=== PATIENT | female | born 1935 | race Caucasian/White ===

== ENCOUNTER 2016-06-29 19:30 | Emergency (ER) | payer MEDICARE, OTHER ==
[~2016-06-29] VITALS: Ht 160 cm; Wt 75.0 kg
[~2016-06-29 19:30] MED LIST: ACET325T PO; ATOR1TAB18 PO; CARV3.12 PO; CEPH-460 PO; CILO100T PO; DIVA250ER PO; DOCU100C PO; DORZ2SOL7 EACH EYE; FLOR250C PO; FLUO1TAB3 PO; FURO40TA PO; IPRASOL INH; K-TA10TA PO; KETO2CRE TOPICAL; LEVO.075 PO; LORA-373 PO; LORA1TAB12 PO; MELA3TAB PO; MIRA33504 PO; NYST15T TOPICAL; PANT40TA3 PO; SALM50I INH; SELE1SHA3 TOPICAL; SENN1TAB PO; TRAM50TA PO; TUMS500C CHEW; VENTAER INH; VITA100018 PO
[2016-06-29 19:45] VITALS: PULSE 96; RESP 20; TEMP 98; O2SAT 89
[2016-06-29 19:50] VITALS: RESP 18; O2SAT 94
[2016-06-29] MEDS ORDERED: SODIUM CHLORIDE 0.9% FLUSH 10 ML FLUSH IVF PRN (20:00)
[2016-06-29 20:08] LABS: AUTOMATED NEUTROPHIL # 4.4 TH/MM3 (1.8-7.7); BASOPHIL # 0.1 TH/MM3 (0-0.2); BASOPHIL % 0.9 % (0.0-2.0); EOSINOPHIL # 0.2 TH/MM3 (0-0.4); EOSINOPHIL % 3.1 % (0.0-4.0); HEMATOCRIT 34.8 % (35.0-46.0); HEMO FLAGS DIFF FINAL; LYMPH % 18.8 % (9.0-44.0); LYMPHOCYTE # 1.3 TH/MM3 (1.0-4.8); MEAN CELL VOLUME 89.6 FL (80.0-100.0); MEAN CORPUSCULAR HEMOGLOBIN 31.9 PG (27.0-34.0); MEAN CORPUSCULAR HGB CONC 35.6 % (32.0-36.0); MONO % 12.4 % (0.0-8.0); NEUT % 64.8 % (16.0-70.0); PLATELET COUNT 278 TH/MM3 (150-450); RED BLOOD COUNT 3.89 MIL/MM3 (4.00-5.30); RED CELL DISTRIBUTION WIDTH 13.9 % (11.6-17.2); WHITE BLOOD COUNT 6.8 TH/MM3 (4.0-11.0)
--- NOTE | 2016-06-29 20:15 | PD ---
HPI Chief Complaint: Respiratory Symptoms Time Seen by Provider: 20:12 Travel History International Travel<30 days: No Contact w/Intl Traveler<30days: No Traveled to known affect area: No History of Present Illness HPI 80-year-old female that presents to the ED for evaluation of possible pneumonia. Patient was sent here from long-term after apparently she had an x-ray that showed pneumonia. She was sent here for evaluation of this. Unclear if something has been done for the pneumonia. Patient does have some Alzheimer's what she is able to answer questions a properly. Per patient she's been sick for a couple of weeks. She does have a history of COPD and uses inhalers and prednisone at home. She states that she's been feeling somewhat short of breath and she has a cough or runny nose. No fevers chills or sweats. Patient had a chest x-ray performed at a different facility which was positive for right-sided possible pneumonia versus effusion. Patient denies any abdominal pain. No nausea or vomiting. No pain of any kind. Per patient she does have some shortness of breath. No leg pain. No arm pain. She does have a history of anemia for which she takes iron but no blood thinners. Allergies to corticosteroids. Symptoms have been ongoing for a couple of weeks. PFSH Past Medical History Hx Anticoagulant Therapy: Yes (asa 81mg prn) Arthritis: Yes Asthma: No Autoimmune Disease: No Bipolar Disorder: Yes Heart Rhythm Problems: Yes Cancer: Yes (Skin ) Cardiovascular Problems: No High Cholesterol: Yes Chemotherapy: No Chest Pain: No Congestive Heart Failure: No COPD: Yes Cerebrovascular Accident: No Diabetes: Yes Patient Takes Glucophage: Yes Diminished Hearing: No Endocrine: Yes Gastrointestinal Disorders: No GERD: No Genitourinary: No Hiatal Hernia: No Immune Disorder: No Kidney Stones: No Musculoskeletal: Yes Neurologic: No Psychiatric: No Reproductive: No Respiratory: Yes Migraines: No Radiation Therapy: No Renal Failure: No Seizures: Yes Sickle Cell Disease: No Sleep Apnea: No Thyroid Disease: Yes Ulcer: No Tetanus Vaccination: Unknown Influenza Vaccination: Yes Menopausal: Yes Past Surgical History Abdominal Surgery: Yes (umbilical hernia repair) AICD: No Arteriovenous Shunt: No Cardiac Surgery: No Ear Surgery: No Endocrine Surgery: Yes (Thyroid) Eye Surgery: Yes (cataracts) Genitourinary Surgery: No Gynecologic Surgery: No Insulin Pump: No Joint Replacement: No Oral Surgery: No Pacemaker: No Thoracic Surgery: No Tonsillectomy: Yes Other Surgery: Yes Social History Alcohol Use: Yes (FEW DRINKS A WEEK) Tobacco Use: No Substance Use: No Allergies-Medications (Allergen,Severity, Reaction): Coded Allergies: Corticosteroids (Verified Allergy, Unknown, Irritability/Anxiety, 06/29/16) Reported Meds & Prescriptions Reported Meds & Active Scripts Active Pantoprazole (Pantoprazole Sodium) 40 Mg Tab 40 Mg PO DAILY Reported Selenium Sulfide-Pyrithione Topical 2.25 % Sham 1 Applic TOPICAL ON SHOWER DAYS Nystatin Topical (Nystatin) 100,000 unit/gm Cream 1 Applic TOPICAL BID PRN Ventolin Hfa 18 GM Inh (Albuterol Sulfate) 90 Mcg/Act Aer 2 Puff INH Q6H PRN Tramadol (Tramadol HCl) 50 Mg Tab 50 Mg PO BID PRN Senna-Plus (Sennosides-Docusate Sodium) 8.6-50 Mg Tab 2 Tab PO HS PRN Miralax Powder (Polyethylene Glycol 3350 Powder) 17 Gm Powd 17 Gm PO DAILY Mix and dissolve one measuring cap-ful (17 grams) in water or juice. Lorazepam 0.5 Mg Tab 0.5 Mg PO TID PRN Ketoconazole Topical 2% Cream 1 Applic TOPICAL DIRECTED PRN Duoneb (Ipratropium-Albuterol Neb) 0.5-2.5 Mg/3 Ml Neb 1 Nebule INH Q3HR NEB PRN Acetaminophen 325 Mg Tab 650 Mg PO Q4H PRN Melatonin 3 Mg Tab 6 Mg PO HS Lorazepam 1 Mg Tab 1 Mg PO HS Atorvastatin (Atorvastatin Calcium) 80 Mg Tab 80 Mg PO HS Depakote ER (Divalproex Sodium) 250 Mg Ke 250 Mg PO TID Fluoxetine (Fluoxetine HCl) 20 Mg Tab 30 Mg PO DAILY Serevent Diskus Inh (Salmeterol Xinafoate) 50 Mcg/Act Aero 1 Puff INH BID Cosopt Opth Drops (Dorzolamide-Timolol Opth Drops) 22.3-6.8 Mg/Ml Soln 1 Drop EACH EYE BID Cilostazol 100 Mg Tab 100 Mg PO BID Carvedilol 3.125 Mg Tab 3.125 Mg PO Q12HR Tums (Calcium Carbonate (Antacid)) 500 Mg Chew 1,000 Mg CHEW BID Vitamin D3 (Cholecalciferol) 1,000 Unit Tab 1,000 Units PO DAILY K-Tab (Potassium Chloride) 10 Meq Tab 10 Meq PO DAILY Furosemide 40 Mg Tab 40 Mg PO DAILY Docusate Sodium 100 Mg Cap 100 Mg PO EVERY OTHER DAY Synthroid (Levothyroxine Sodium) 75 Mcg Tab 75 Mcg PO DAILY Florastor (Saccharomyces Boulardii) 250 Mg Cap 250 Mg PO QID Keflex (Cephalexin) 500 Mg Cap 500 Mg PO Q8H Review of Systems Except as stated in HPI: all other systems reviewed are Neg Physical Exam Narrative GENERAL: Well-nourished, well-developed patient in no apparent distress. SKIN: Warm and dry. HEAD: Atraumatic. Normocephalic. EYES: Pupils equal and round reactive to light and accommodation. No scleral icterus. No injection or drainage. ENT: No nasal bleeding or discharge. Mucous membranes pink and moist. TMs are clear with no sign of infection or perforation. No mastoid tenderness. Ear canals are intact bilaterally. No lymphadenopathy. Nostril mucosa is red and moist with clear mucus noted. No sinus tenderness to palpation noted. Tonsils are not enlarged or swollen. No ulvua Deviation. Tongue is midline. NECK: Trachea midline. No JVD. No meningeal signs noted CARDIOVASCULAR: Regular rate and rhythm. No murmurs, S3, S4. RESPIRATORY: No accessory muscle use. Rales heard in all lung bazzi. Breath sounds equal bilaterally. GASTROINTESTINAL: Abdomen soft, non-tender, nondistended. Hepatic and splenic margins not palpable. MUSCULOSKELETAL: Extremities without clubbing, cyanosis, or edema. No obvious deformities. NEUROLOGICAL: Awake and alert. No obvious cranial nerve deficits. Motor grossly within normal limits. Five out of 5 muscle strength in the arms and legs. Normal speech. PSYCHIATRIC: Appropriate mood and affect; insight and judgment normal. Data Data Last Documented VS Vital Signs Date Time Temp Pulse Resp B/P Pulse Ox O2 Delivery O2 Flow Rate FiO2 06/29/16 19:50 18 94 Nasal Cannula 3 06/29/16 19:47 90 06/29/16 19:45 98.0 Orders Complete Blood Count With Diff (06/29/16 19:49) Comprehensive Metabolic Panel (06/29/16 19:49) Chest, Single Ap (06/29/16 19:49) Ecg Monitoring (06/29/16 19:49) Iv Access Insert/Monitor (06/29/16 19:49) Oximetry (06/29/16 19:49) Oxygen Administration (06/29/16 19:49) Albuterol Neb (Albuterol Neb) (06/29/16 20:00) Sodium Chloride 0.9% Flush (Ns Flush) (06/29/16 20:00) Blood Culture (06/29/16 20:15) B-Type Natriuretic Peptide (06/29/16 20:39) Labs Laboratory Tests Test 06/29/16 19:55 White Blood Count 6.8 TH/MM3 Red Blood Count 3.89 MIL/MM3 Hemoglobin 12.4 GM/DL Hematocrit 34.8 % Mean Corpuscular Volume 89.6 FL Mean Corpuscular Hemoglobin 31.9 PG Mean Corpuscular Hemoglobin 35.6 % Concent Red Cell Distribution Width 13.9 % Platelet Count 278 TH/MM3 Mean Platelet Volume 6.8 FL Neutrophils (%) (Auto) 64.8 % Lymphocytes (%) (Auto) 18.8 % Monocytes (%) (Auto) 12.4 % Eosinophils (%) (Auto) 3.1 % Basophils (%) (Auto) 0.9 % Neutrophils # (Auto) 4.4 TH/MM3 Lymphocytes # (Auto) 1.3 TH/MM3 Monocytes # (Auto) 0.8 TH/MM3 Eosinophils # (Auto) 0.2 TH/MM3 Basophils # (Auto) 0.1 TH/MM3 CBC Comment DIFF FINAL Differential Comment Sodium Level 134 MEQ/L Potassium Level 3.4 MEQ/L Chloride Level 94 MEQ/L Carbon Dioxide Level 31.8 MEQ/L Anion Gap 8 MEQ/L Blood Urea Nitrogen 16 MG/DL Creatinine 0.62 MG/DL Estimat Glomerular Filtration 92 ML/MIN Rate Random Glucose 114 MG/DL Calcium Level 8.4 MG/DL Total Bilirubin 0.5 MG/DL Aspartate Amino Transf 20 U/L (AST/SGOT) Alanine Aminotransferase 27 U/L (ALT/SGPT) Alkaline Phosphatase 61 U/L B-Type Natriuretic Peptide 171 PG/ML Total Protein 6.5 GM/DL Albumin 2.5 GM/DL MDM Medical Decision Making Medical Screen Exam Complete: Yes Emergency Medical Condition: Yes Medical Record Reviewed: Yes Interpretation(s) CBC & BMP Diagram 06/29/16 19:55 BNP in the 100s Last Impressions Chest X-Ray 06/29/161948 Signed Impressions: Service Date/Time: Wednesday, June 29, 2016 20:15 - CONCLUSION: 1. Hazy opacity in both lungs with no definite consolidation. The findings could represent mild pulmonary edema or scarring. 2. The heart size is mildly prominent. There is no definite effusion. Dao Banks MD Differential Diagnosis CHF versus pneumonia versus COPD exacerbation versus mass Narrative Course 80-year-old female that presents to the ED for evaluation of possible pneumonia. Patient was properly examined and was found to have signs and symptoms of unclear etiology. Most of the story is obtained from the patient as well as the paperwork provided the ambulance. She is apparently here for evaluation of pneumonia. Unclear patient has been treated for this however. At this time I recommend labs and imaging. Patient is agreement with this plan. Labs and imaging showed some nonspecific edema versus consolidation. Labs essentially unremarkable. No WBC count noted. Patient's bowels have been stable other than the O2 sat being low with patient having oxygen. Patient apparently does use oxygen at home. She does to make she's not been using it. Unclear if patient has been taking antibiotics. Unclear if this is pneumonia at this time. Chest x-ray here did not show any obvious sign of consolidation and again will also count is essentially unremarkable with no elevated leukocytosis. Patient was given breathing treatment with improvement of symptoms as well. Case was discussed in my attending Dr Huynh who was made aware of all findings as well as labs and recommends the patient can be discharged back to long-term. At this time I will prescribe patient now prescription for Levaquin to call for presumptive pneumonia although this is less likely as well as prednisone. Patient is allergic to corticosteroids but she's been taking prednisone at home 5 mg every day. She gets irritability witted and no other symptoms. Feel like the patient will benefit from a higher dose of steroids as he does appear to have a slight COPD exacerbation. Patient is agreement with this plan. Patient is desirious to go back to her long-term. Patient will be discharged back to long-term. Follow with PCP. See ED worsening symptoms. Diagnosis Primary Impression: COPD (chronic obstructive pulmonary disease) Qualified Code: J44.1 - Chronic obstructive pulmonary disease with acute exacerbation Additional Impression: CAP (community acquired pneumonia) Patient Instructions: General Instructions Additional Instructions: Use your oxygen every day. Take medications as prescribed. Continue using nebulizer treatments every 4 hours as needed. See ED for worsening symptoms. Med/Other Pt SpecificInfo: Prescription(s) given Scripts Prednisone 20 Mg Tab20 Mg PO BID #10 TAB Prov:Juli Huynh MD 06/29/16 Levofloxacin (Levaquin)750 Mg [id number] Mg PO DAILY 7 Days Ref 0 Prov:Juli Huynh MD 06/29/16 Disposition: 03 DISCHARGE TO SNF Condition: Stable Wayne Medina June 29, 2016 20:15
[2016-06-29 20:24] LABS: ANION GAP 8 MEQ/L (5-15); AST (GOT) 20 U/L (15-37); BICARBONATE 31.8 MEQ/L (21.0-32.0); BLOOD UREA NITROGEN 16 MG/DL (7-18); CHLORIDE 94 MEQ/L (98-107); GLOMERULAR FILTRATION RATE 92 ML/MIN (>89); POTASSIUM 3.4 MEQ/L (3.5-5.1); SODIUM (NA) 134 MEQ/L (136-145)
[2016-06-29 20:27] LABS: ALKALINE PHOSPHATASE 61 U/L (45-117); ALT (GPT) 27 U/L (10-53); TOTAL BILIRUBIN ADULT 0.5 MG/DL (0.2-1.0)
[2016-06-29] MEDS: RESP: ALBUTEROL 2.5 MG/3 ML NEB (SCH) INH ×2 (20:30→20:31)
--- NOTE | 2016-06-29 20:38 | RADRPT ---
EXAM DATE/TIME: 06/29/2016 20:15 [facility] COMPARISON: No previous studies available for comparison. INDICATIONS : Short of breath, wheezing. MEDICAL HISTORY : Hypothyroidism. Cardiovascular disease. SURGICAL HISTORY : None. ENCOUNTER: Initial ACUITY: 1 month PAIN SCORE: 0/10 LOCATION: chest FINDINGS: A single AP portable erect view of the chest was obtained and demonstrates mild hazy opacity in the p erihilar regions and lung bases as well as the right upper lobe but no definite consolidation. The he art size is mildly prominent. There is no distinct effusion. Atherosclerotic calcifications are prese nt in the aorta. The bony thorax is intact. CONCLUSION: 1. Hazy opacity in both lungs with no definite consolidation. The findings could represent mild pulmo nary edema or scarring. 2. The heart size is mildly prominent. There is no definite effusion. Dao Banks MD on June 29, 2016 at 20:35 Board Certified Radiologist. This report was verified electronically.
[2016-06-29] MEDS ORDERED: PRED20 PO (21:59)
[2016-06-29] MEDS ORDERED: LEVA750T PO (21:59)
[2016-06-30 05:32] VITALS: BP 115/78; PULSE 91; RESP 16; O2SAT 94
[2016-06-30 08:30] VITALS: BP 134/65; PULSE 102; RESP 18; O2SAT 98
== END 2016-06-30 09:59 ==
LOC: NEPE 19:30
DX: J44.1 Chronic obstructive pulmonary disease with (acute) exacerbation (principal); J18.8 Other pneumonia, unspecified organism; E11.9 Type 2 diabetes mellitus without complications; E07.9 Disorder of thyroid, unspecified; E78.00 Pure hypercholesterolemia, unspecified; Z79.82 Long term (current) use of aspirin; Z79.84 Long term (current) use of oral hypoglycemic drugs; Z87.39 Personal history of other diseases of the musculoskeletal system and connective tissue; Z86.2 Personal history of diseases of the blood and blood-forming organs and certain disorders involving the immune mechanism; Z86.59 Personal history of other mental and behavioral disorders; Z86.79 Personal history of other diseases of the circulatory system; Z85.828 Personal history of other malignant neoplasm of skin; Z87.09 Personal history of other diseases of the respiratory system; Z86.69 Personal history of other diseases of the nervous system and sense organs
CPT/HCPCS: 71010; 80053; 83880; 85025; 87040; 94640; 94664; 99284; J7613